=== PATIENT | male | born 1995 | race Two or more races ===

== ENCOUNTER 2023-11-11 05:11 | Emergency (ER) | payer SELFPAY ==
[~2023-11-11] VITALS: Ht 182.9 cm; Wt 110.0 kg
[2023-11-11 05:51] LABS: Basophils # (auto) 0.1 10 ^3/uL (0-0.2); Basophils % (auto) 0.6 % (0.0-2.0); Eosinophils # (auto) 0.2 10 ^3/uL (0-0.8); Eosinophils % (auto) 1.4 % (0.0-7.0); Hematocrit 47.7 % (41.0-53.0); Hemoglobin 16.5 g/dL (13.5-17.5); Lymphocytes # (auto) 3.5 10 ^3/uL (0.4-5.4); Lymphocytes % (auto) 23.2 % (10.0-50.0); Mean Corpuscular Hemoglobin 29.1 pg (28.0-32.0); Mean Corpuscular Hgb Conc. 34.6 g/dL (32.0-36.0); Monocytes # (auto) 1.2 10 ^3/uL (0-1.3); Monocytes % (auto) 8.1 % (0.0-12.0); Neutrophils # (auto) 10.1 10 ^3/uL (1.6-8.6); Neutrophils % (auto) 66.7 % (37.0-80.0); Nucleated Red Blood Cells % 0.1 %; Red Blood Cells 5.68 10^6/uL (4.5-5.90); Red Cell Distribution Width 13.9 % (11.8-14.3); White Blood Cell 15.1 10^3/uL (4.4-10.8)
[2023-11-11 06:05] LABS: Alanine Aminotransferase 27 U/L (7-40); Albumin 4.6 g/dL (3.2-4.8); Alkaline Phosphatase 108 U/L (46-116); Anion Gap 6 (5-15); Aspartate Aminotransferase 18 U/L (13-40); BUN/Creatinine Ratio 12.1 (10.0-20.0); Bilirubin, Total 0.5 mg/dL (0.2-1.0); Blood Urea Nitrogen 13 mg/dL (9-23); Calcium 9.9 mg/dL (8.5-10.1); Carbon Dioxide 29 mmol/L (20-30); Chloride 104 mmol/L (98-107); Glucose 111 mg/dL (74-106); Potassium 3.8 mmol/L (3.5-5.1); Sodium 139 mmol/L (136-145); Total Protein 6.9 g/dL (5.7-8.2)
[2023-11-11] MEDS: ASPirin 81 mg TAB PO ONE (07:28)
[2023-11-11] MEDS: SODIUM CHLORIDE 0.9% 1,000 ML IVB ONE (07:28)
[2023-11-11 07:37] VITALS: BP 135/78; PULSE 53; RESP 18; O2SAT 100
[2023-11-11] MEDS: HYDROcodone-ACET 7.5/325MG TAB PO ONE (07:51)
[2023-11-11] MEDS: KETOROLAC TROMETH 30 MG/ML 1ML VIAL IV ONE (08:11)
[2023-11-11] MEDS ORDERED: HYDR1TAB97 PO (08:34)
[2023-11-11] MEDS ORDERED: CYCL-839 PO (08:34)
[2023-11-11] MEDS ORDERED: DICL50TA2 PO (08:34)
== END 2023-11-11 08:49 | disposition home or self-care (01) ==
LOC: ER 05:11
DX: K22.4 Dyskinesia of esophagus (principal); R07.89 Other chest pain; F12.90 Cannabis use, unspecified, uncomplicated; F17.210 Nicotine dependence, cigarettes, uncomplicated
CPT/HCPCS: 36415; 71045; 80053; 83880; 84484; 85025; 85379; 93005; 96361; 96374; 99285; J1885; J7030